=== PATIENT | male | born 1975 | race African-American/Black ===

== ENCOUNTER 2017-07-27 04:15 | Observation (INO) | payer OTHER ==
[~2017-07-27] VITALS: Ht 172.7 cm; Wt 79.1 kg
[2017-07-27 05:21] LABS: APPEARANCE CLEAR ((CLEAR)); BILIRUBIN NEGATIVE; BLOOD NEGATIVE; COLOR STRAW ((YELLOW)); GLUCOSE (STRIP) NEGATIVE; KETONES NEGATIVE; LEUKOCYTES NEGATIVE; NITRITE NEGATIVE; PROTEIN (STRIP) NEGATIVE; SPECIFIC GRAVITY 1.004 (1.000-1.030); UCUL ADDED? NO; UROBILINOGEN 0.2 MG/DL (0.2-1.0)
[2017-07-27 05:36] LABS: ALBUMIN 3.8 g/dL (3.2-4.8); CHLORIDE 105 mEq/L (99-109); POTASSIUM 3.7 mEq/L (3.7-5.4); SODIUM 140 mEq/L (136-147)
[2017-07-27 05:39] LABS: GLUCOSE 86 mg/dL (70-99); TOTAL PROTEIN 6.2 g/dL (6.4-8.3)
[2017-07-27 05:41] LABS: TOTAL BILIRUBIN 0.4 mg/dL (0.0-1.0)
[2017-07-27 05:42] LABS: ALKALINE PHOSPHATASE 93 IU/L (3-129); GFR ESTIMATE (CALCULATED) > 59 mL/min/ (58.99-99999)
[2017-07-27 05:43] LABS: UREA NITROGEN (BUN) 7 mg/dL (9-23)
[2017-07-27 05:44] LABS: AST (GOT) 17 IU/L (2-34)
[2017-07-27 05:45] LABS: ALT (GPT) 16 IU/L (3-49)
[2017-07-27 05:46] LABS: CREATINE KINASE 163 IU/L (1-294); LIPASE 15 U/L (1.0-51.0); TOTAL CK 163 IU/L (1-294)
[2017-07-27 05:51] LABS: CK-MB 1.7 ng/mL (0.0-4.9)
[2017-07-27 06:27] LABS: HEMOGLOBIN 13.1 G/DL (12.5-16.6); MCH 22.9 PG (29.0-34.0); MCV 71.6 FL (86-99); PLATELET COUNT 245 K/uL (156-360); RBC DIS.WIDTH-CV 17.2 % (11.8-14.6); RBC DIS.WIDTH-SD 41.1 % (39-53); RED BLOOD COUNT 5.73 M/uL (4.00-5.50); WHITE BLOOD COUNT 5.6 K/uL (4.1-10.2)
[2017-07-27 09:29] VITALS: BP 137/84
[2017-07-27 11:44] VITALS: BP 119/70
[2017-07-27 16:08] VITALS: BP 117/80
[2017-07-27 18:58] VITALS: BP 106/74
[2017-07-27 23:37] VITALS: BP 109/62
[2017-07-28 04:02] VITALS: BP 141/69
[2017-07-28 08:50] VITALS: BP 150/93
[2017-07-28] MEDS ORDERED: KEPPRA500 MG PO (10:25)
[2017-07-28 11:27] VITALS: BP 121/73
== END 2017-07-28 11:57 | disposition home or self-care (01) ==
LOC: EME 04:15 → EDOF 08:01 → 5WEST 08:01 → ENRESERV 08:08 → CANRESERV 08:39 → EDOF 08:50 → ENRESERV 09:06 → 5WEST 09:15
PROVIDERS: Emergency Medicine
DX: R56.9 Unspecified convulsions (principal); R09.02 Hypoxemia; Z87.820 Personal history of traumatic brain injury; G43.909 Migraine, unspecified, not intractable, without status migrainosus; F17.200 Nicotine dependence, unspecified, uncomplicated; F12.90 Cannabis use, unspecified, uncomplicated
CPT/HCPCS: 70450; 70551; 80053; 81003; 82550; 82553; 83690; 85027; 95819; 99281; 99285; G0378; J1650; J1953; J7030; J7050; S0028